=== PATIENT | female | born 1965 ===

== ENCOUNTER 2018-12-14 15:53 | Emergency (ER) | payer SELFPAY ==
[2018-12-14 16:14] VITALS: BMI 27.4
[2018-12-14 16:20] VITALS: RESP 18; TEMP 98.1
[2018-12-14 17:29] LABS: URINE BILIRUBIN NEGATIVE (NEGATIVE); URINE BLOOD SMALL (NEGATIVE); URINE GLUCOSE (UA) NEGATIVE (NEGATIVE); URINE LEUKOCYTE ESTERASE LARGE Leu/uL (NEGATIVE); URINE PROTEIN 100 mg/dL (<30 mg/dL); URINE UROBILINOGEN 0.2 E.U./dL (<1 E.U./dL)
[2018-12-14 17:30] LABS: URINE APPEARANCE CLOUDY (CLEAR); URINE COLOR YELLOW (YELLOW)
[2018-12-14 17:38] LABS: URINE BACTERIA LARGE /hpf; URINE WBC TNTC /hpf (0-6)
--- NOTE | 2018-12-14 18:01 | ED PDOC ---
Arrival/HPI - General Chief Complaint: Female Genitourinary Time Seen by Provider: 12/14/18 16:10 - History of Present Illness Narrative History of Present Illness (Text): 12/14/18 17:49 53 y/o female with no significant PMH presents to the ED c/o dysuria and foul smelling urine x 1 month. She thinks she may have a UTI. Also notes that she was sick with the flu in October and since has had intermittent episodes of dry cough. But admits the cough has been improving since that time. No cough now. Denies fever, chills, abdominal pain, flank pain, back pain, hematuria, vaginal bleeding, vaginal discharge, dizziness, headache, or any other associated symptoms. Past Medical History - Provider Review Nursing Documentation Reviewed: Yes - Infectious Disease Hx of Infectious Diseases: None - Reproductive Currently : No - Psychiatric Hx Substance Use: No - Surgical History Hx Appendectomy: Yes Family/Social History - Physician Review Nursing Documentation Reviewed: Yes Family/Social History: No Known Family HX Smoking Status: Light Smoker < 10 Cigarettes Daily Hx Alcohol Use: No Hx Substance Use: No Allergies/Home Meds Allergies/Adverse Reactions: Allergies No Known Allergies Allergy (Verified 09/13/16 08:33) Review of Systems - Physician Review All systems were reviewed & negative as marked: Yes - Review of Systems Constitutional: Normal Eyes: Normal. absent: Vision Changes ENT: Normal. absent: Sore Throat, Sinus Congestion Respiratory: Cough. absent: SOB, Sputum, Wheezing Cardiovascular: Normal. absent: Chest Pain, Palpitations Gastrointestinal: Normal. absent: Abdominal Pain, Nausea, Vomiting Genitourinary Female: Dysuria, Frequency. absent: Hematuria, Urine Output Changes, Vaginal Bleeding, Vaginal Discharge Musculoskeletal: Normal. absent: Back Pain Skin: Normal. absent: Rash Neurological: Normal. absent: Headache, Dizziness, Disequilibrium Endocrine: Normal Hemo/Lymphatic: Normal Psychiatric: Normal Physical Exam Vital Signs Reviewed: Yes Vital Signs Temp Pulse Resp BP Pulse Ox 12/14/18 15:53 98.1 F 90 18 142/82 95 Temperature: Afebrile Blood Pressure: Normal Pulse: Regular Respiratory Rate: Normal Appearance: Positive for: Well-Appearing, Non-Toxic, Comfortable Pain Distress: None Mental Status: Positive for: Alert and Oriented X 3 - Systems Exam Head: Present: Atraumatic, Normocephalic Pupils: Present: PERRL Extroacular Muscles: Present: EOMI Conjunctiva: Present: Normal Mouth: Present: Moist Mucous Membranes Neck: Present: Normal Range of Motion. No: Meningeal Signs Respiratory/Chest: Present: Clear to Auscultation, Good Air Exchange. No: Respiratory Distress, Accessory Muscle Use, Wheezes, Rales, Rhonchi Cardiovascular: Present: Regular Rate and Rhythm, Normal S1, S2 Abdomen: Present: Normal Bowel Sounds. No: Tenderness, Distention, Peritoneal Signs, Rebound, Guarding Back: Present: Normal Inspection. No: CVA Tenderness Upper Extremity: Present: Normal Inspection, Normal ROM, NORMAL PULSES, Neurovascularly Intact, Capillary Refill < 2s. No: Cyanosis, Edema, Temperature Abnormalties Lower Extremity: Present: Normal Inspection, NORMAL PULSES, Normal ROM, Neurovascularly Intact, Capillary Refill < 2 s. No: Edema, Temperature Abnormalties Neurological: Present: GCS=15, CN II-XII Intact, Speech Normal, Motor Func Grossly Intact, Normal Sensory Function, Gait Normal Skin: Present: Warm, Dry, Normal Color. No: Rashes Psychiatric: Present: Alert, Oriented x 3, Normal Insight, Normal Concentration, Normal Affect, Normal Mood Medical Decision Making ED Course and Treatment: Initial Plan: * UA * Reassess and Disposition UA shows (+) nitrates, protein, leuk esterase, WBC, RBC Will treat with Keflex, first dose given here Will give ventolin inhaler to be used for dry cough as needed Diagnostic testing results and plan of care discussed with patient. Strict instructions given regarding prescription use, importance of followup, and signs/symptoms to return to ER including fever, chills, abdominal pain, back pain, or any other new/worsening symptoms. Pt verbalized understanding of discussion. Patient is A&Ox3, ambulating with steady gait, with vital signs stable for discharge. - Lab Interpretations Lab Results: Urine Color Yellow (YELLOW) 12/14/18 17:19 Urine Appearance Cloudy (CLEAR) 12/14/18 17: Urine pH 6.0 (4.7-8.0) 12/14/18 17:19 Ur Specific [place] 1.025 (1.005-1.035) 12/14/18 17: Urine Protein 100 mg/dL (<30 mg/dL) H 12/14/18 17:19 Urine Glucose (UA) Negative mg/dL (NEGATIVE) 12/14/18 17:19 Urine Ketones Negative mg/dL (NEGATIVE) 12/14/18 17:19 Urine Blood Small (NEGATIVE) H 12/14/18 17:19 Urine Nitrate Positive (NEGATIVE) H 12/14/18 17:19 Urine Bilirubin Negative (NEGATIVE) 12/14/18 17:19 Urine Urobilinogen 0.2 E.U./dL (<1 E.U./dL) 12/14/18 17:19 Ur Leukocyte Esterase Large Cassandra/uL (NEGATIVE) H 12/14/18 17:19 Urine RBC 2 - 5 /hpf (0-2) H 12/14/18 17:19 Urine WBC Tntc /hpf (0-6) H 12/14/18 17:19 Ur Epithelial Cells 1 - 3 /hpf (0-5) 12/14/18 17:19 Urine Bacteria Large /hpf (NONE) 12/14/18 17:19 - Medication Orders Current Medication Orders: Discontinued Medications Cephalexin Monohydrate (Keflex) 500 mg PO STAT STA; Protocol Stop: 12/14/18 17:32 Disposition/Present on Arrival - Present on Arrival Any Indicators Present on Arrival: No History of DVT/PE: No History of Uncontrolled Diabetes: No Urinary Catheter: No History of Decub. Ulcer: No History Surgical Site Infection Following: None - Disposition Have Diagnosis and Disposition been Completed?: Yes Diagnosis: UTI (urinary tract infection) Disposition: HOME/ ROUTINE Disposition Time: 17:19 Patient Plan: Discharge Patient Problems: Current Active Problems Problem Status Onset UTI (urinary tract infection) Acute Condition: GOOD Discharge Instructions (ExitCare): Urinary Tract Infections in Adults Additional Instructions: Keflex every 12 hours for 7 days Ventolin inhaler every 6 hours as needed for cough Increase fluids Followup with primary doctor within 2 days Return to ER for any new/worsening symptoms Prescriptions: Albuterol Sulfate [Ventolin Hfa] 2 puff IH Q6 #1 pump Cephalexin [Keflex] 500 mg PO Q12 7 Days #13 capsule Referrals: [facility] at [facility] [place]] - Follow up with primary Archana Patiño MD [Medical Doctor] - Follow up with primary Forms: [facility] ([place]), WORK NOTE
[2018-12-14 18:05] VITALS: BP 139/82; PULSE 87; O2SAT 97
[2018-12-15] MEDS ORDERED: DiphenhydrAMINE 50 mg/ml Inj ONE (03:46)
== END 2018-12-14 18:04 | disposition home or self-care (01) ==
LOC: ED 15:53
DX: N39.0 Urinary tract infection, site not specified (principal); F17.210 Nicotine dependence, cigarettes, uncomplicated